=== PATIENT | male | born 1960 | race Caucasian/White ===

== ENCOUNTER 2018-06-11 16:45 | Emergency (ER) | payer OTHER ==
[~2018-06-11] VITALS: Ht 185.4 cm; Wt 121.1 kg
--- OUTSIDE RECORDS SUMMARY | 2018-06-11 16:48 | XMS REPORT | Continuity of Care Document ---
Author Author [facility] Address Unknown Phone Unavailable Problems Problem Status Onset Date Classification Date Reported Comments Source 1 YR FU Active 02/06/2017 [facility] FOLLOW UP Active 11/05/2015 [facility] SENIOR SALES REPRESENTATIVE TO ADD Active 11/01/2015 [facility] ABN ECHO R94.31 Active 11/01/2015 [facility] CHEST PAIN, UNSPECIFIED Active [facility] ABNORMAL ELECTROCARDIOGRAM [ECG] [EKG] Active [facility] Medications Medication Details Route Status Patient Instructions Ordering Provider Order Date Source Hydrochlorothiazide 12.5 MG / Lisinopril 10 MG Oral Tablet 1 tab, PO, Daily, # 90 tab, 3 Refill(s), Pharmacy: [facility] #[id number] Active 10/27/2015 [facility] Hydrochlorothiazide 12.5 MG / Lisinopril 10 MG Oral Tablet 1 tab, PO, Daily, # 90 tab, 0 Refill(s) Inactive 10/27/2015 [facility] Allergies, Adverse Reactions, Alerts Substance Category Reaction Severity Reaction type Status Date Reported Comments Source Immunizations Immunization Date Given Site Status Last Updated Comments Source Results Order Name Results Value Reference Range Date Interpretation Comments Source Vital Signs Vital Sign Value Date Comments Source Height 185.42 cm 02/06/2017 [facility] Weight 124.091 02/06/2017 [facility] BMI Calculated 36.09 02/06/2017 [facility] Systolic (mm Hg) 108 02/06/2017 [facility] Diastolic (mm Hg) 78 02/06/2017 [facility] Heart Rate 62 02/06/2017 [facility] BMI Calculated 37.81 10/27/2015 [facility] Weight 130 10/27/2015 [facility] Systolic (mm Hg) 113 10/27/2015 [facility] Diastolic (mm Hg) 78 10/27/2015 [facility] Height 185.42 cm 10/27/2015 [facility] Heart Rate 56 10/27/2015 [facility] Encounters Location Location Details Encounter Type Encounter Number Reason For Visit Attending Provider ADM Date DC Date Status Source [facility] [id number] Speedy Keane 10/27/2015 10/28/2015 [facility] Outpatient [id number] Speedy Keane 11/16/2015 11/17/2015 [facility]iology [facility] Outpatient [id number] Speedy Keane 02/06/2017 02/07/2017 [facility] Procedures Procedure Code Date Perfomer Comments Source
--- OUTSIDE RECORDS SUMMARY | 2018-06-11 16:48 | XMS REPORT | Summary of Care ---
Author Author [facility] Organization [facility] Address Unknown Phone Unavailable Encounter [facility] Encntr_alias(FIN) [id number] Date(s): 11/16/15 - 11/16/15 [facility] [address] [place] [address]- Discharge Disposition: Home or Self Care Attending Physician: Speedy Keane DO Admitting Physician: Speedy Keane DO Referring Physician: Speedy Keane DO Vital Signs No data available for this section Problem List No data available for this section Allergies, Adverse Reactions, Alerts No data available for this section Medications No data available for this section Results No data available for this section Immunizations No data available for this section Procedures No data available for this section Social History Social History Type Response Smoking Status Never smoker; Exposure to Tobacco Smoke None; Cigarette Smoking Last 365 Days No; Reg Smoking Cessation Counseling No Assessment and Plan No data available for this section
--- OUTSIDE RECORDS SUMMARY | 2018-06-11 16:48 | XMS REPORT | Summary of Care ---
Author Author [facility] Organization [facility] Address Unknown Phone Unavailable Encounter HQ Fredyntr_toshia(FIN) [id number] Date(s): 02/06/17 - 02/06/17 [facility] [address] [place] [address]- [phone] Discharge Disposition: Home or Self Care Attending Physician: Speedy Keane DO Referring Physician: Speedy Keane DO Vital Signs Most recent to 1 oldest [Reference Range]: Height 185.42 cm (02/06/17 2:23 PM) Blood Pressure 108/78 mmHg [90-140/60-90 mmHg] (02/06/17 2:23 PM) Peripheral Pulse 62 bpm Rate [60-100 bpm] (02/06/17 2:23 PM) Weight 124.091 kg (02/06/17 2:23 PM) Body Mass Index 36.09 m2 (02/06/17 2:23 PM) Problem List No data available for this section Allergies, Adverse Reactions, Alerts Substance Reaction Severity Status NKDA Active Medications No Known Medications Results No data available for this section Immunizations No data available for this section Procedures No data available for this section Social History Social History Type Response Smoking Status Never smoker; Exposure to Tobacco Smoke None; Cigarette Smoking Last 365 Days No; Reg Smoking Cessation Counseling No Assessment and Plan No data available for this section
[2018-06-11] MEDS ORDERED: TESSALON PERLE100 MG PO (17:11)
[2018-06-11] MEDS ORDERED: DOXYCYCLINE HY100 MG PO (17:11)
[2018-06-11] MEDS ORDERED: VENTOLIN HFA18 GM PO (17:11)
--- NOTE | 2018-06-11 17:30 | Diagnostic Imaging Report ---
Frontal and lateral views of the chest - 3 images HISTORY: Cough, flulike symptoms COMPARISON: None available. DISCUSSION: Overlying linear artifacts, may be secondary to clothing. Lungs: Mild prominence of the peribronchial interstitial markings. No evidence of a consolidative pneumonia or pulmonary alveolar edema. Pleura: No pleural effusion or pneumothorax. Heart and mediastinum: The cardiomediastinal silhouette appears unremarkable. Bones and soft tissues: Appear unremarkable. IMPRESSION: Findings which can be seen in the setting of a nonspecific bronchitis. Signed by: Dr. Akira Thomson D.O., M.M.M. on 06/11/2018 5:27 PM
== END 2018-06-11 17:59 | disposition home or self-care (01) ==
LOC: FSED 16:45
DX: R50.9 Fever, unspecified (principal); R05 Cough; J20.9 Acute bronchitis, unspecified; M25.511 Pain in right shoulder; R94.31 Abnormal electrocardiogram [ECG] [EKG]; I10 Essential (primary) hypertension
CPT/HCPCS: 71046; 80053; 84484; 85025; 93005; 99283